=== PATIENT | female | born 1995 | race Caucasian/White ===

== ENCOUNTER 2018-05-22 10:06 | Emergency (ER) | payer OTHER ==
[~2018-05-22] VITALS: Ht 165.1 cm; Wt 68.0 kg
[2018-05-22 10:18] VITALS: BP 114/73
[2018-05-22 10:22] VITALS: BP 114/73
[2018-05-22] MEDS ORDERED: LIDOCAINE 1% ***ER ONLY *** 10 MG/ML VIAL INJ ONE (11:20)
[2018-05-22] MEDS ORDERED: LIDOCAINE MPF 1% - 5 mL VIAL 5 ML ONE (11:24)
== END 2018-05-22 12:09 | disposition home or self-care (01) ==
LOC: MED 10:06
DX: L02.214 Cutaneous abscess of groin (principal); F17.210 Nicotine dependence, cigarettes, uncomplicated
CPT/HCPCS: 10060; 99283; J2001

== ENCOUNTER 2018-09-17 14:29 | Emergency (ER) | payer OTHER ==
[~2018-09-17] VITALS: Ht 165.1 cm; Wt 76.8 kg
[2018-09-17 14:32] VITALS: BP 141/86
[2018-09-17 15:35] LABS: BASOPHILS % (AUTO) 0.4 % (0.0-2.0); EOSINOPHILS # (AUTO) 0.1 K/uL (0-0.4); EOSINOPHILS % (AUTO) 0.9 % (0.0-4.0); HEMATOCRIT 41.7 % (36-48); HEMOGLOBIN 13.4 g/dL (12.0-16.0); LYMPHOCYTES % (AUTO) 11.3 % (20.5-51.1); MEAN CORPUSCULAR HEMOGLOBIN 28 pg (27-31); MEAN CORPUSCULAR HGB CONC 32 g/dL (33-37); MEAN CORPUSCULAR VOLUME 85.6 fL (80-94); MONOCYTES # (AUTO) 0.5 K/uL (0.8-1.0); MONOCYTES % (AUTO) 5.6 % (1.7-9.3); NEUTROPHILS # (AUTO) 7.1 K/uL (1.8-7.7); NEUTROPHILS % (AUTO) 81.8 % (42.2-75.2); PLATELET COUNT (AUTO) 323 K/uL (140-450); RED BLOOD CELL COUNT(AUTO) 4.87 MIL/uL (4.20-5.40); RED CELL DISTRIBUTION WIDTH 13.8 % (11.6-13.7); WHITE BLOOD COUNT (AUTO) 8.7 K/uL (4.8-10.8)
[2018-09-17 15:48] LABS: ANION GAP 10.2 (8-16); CARBON DIOXIDE 29.7 mmol/L (21-32); CREATININE 0.9 mg/dL (0.6-1.3); POTASSIUM 3.9 mmol/L (3.5-5.1)
[2018-09-17 16:02] LABS: ALBUMIN 4.1 g/dL (3.4-5.0); THYROID STIMULATING HORMONE 0.98 uIU/mL (0.34-3.74); TOTAL BILIRUBIN 0.7 mg/dL (0.0-1.0)
[2018-09-17 17:25] VITALS: BP 141/86
== END 2018-09-17 17:23 | disposition home or self-care (01) ==
LOC: MED 14:29
DX: R20.2 Paresthesia of skin (principal); R10.9 Unspecified abdominal pain; I10 Essential (primary) hypertension; F17.200 Nicotine dependence, unspecified, uncomplicated
CPT/HCPCS: 36415; 80053; 81025; 84443; 85025; 99284

== ENCOUNTER 2019-11-10 17:13 | Emergency (ER) | payer OTHER ==
[~2019-11-10] VITALS: Ht 165.1 cm; Wt 81.6 kg
[2019-11-10 17:21] VITALS: BP 127/65
--- NOTE | 2019-11-10 17:30 | NUR ---
PT AMB TO [facility]
[2019-11-10] MEDS ORDERED: ACETAMINOPHEN EXTRA STRENGTH 500 MG TAB PO ONE (17:35)
--- NOTE | 2019-11-10 17:40 | NUR ---
24/F TO ED WITH C/O RT THUMB PAIN S/P DROPPING A BATTERY ON IT X 1 NIGHT AGO. FULL ROM PRESENT. NO OBVIOUS DEFORMITY OR SWELLING NOTED. IN FAST TRACK CHAIR FOR MSE.
[2019-11-10 18:16] VITALS: BP 127/65
== END 2019-11-10 18:16 | disposition home or self-care (01) ==
LOC: MED 17:13
DX: S60.011A Contusion of right thumb without damage to nail, initial encounter (principal); W22.8XXA Striking against or struck by other objects, initial encounter; Y93.89 Activity, other specified; Y92.89 Other specified places as the place of occurrence of the external cause; Y99.8 Other external cause status
CPT/HCPCS: 73130; 99283

== ENCOUNTER 2022-06-23 11:42 | Emergency (ER) | payer OTHER ==
[~2022-06-23] VITALS: Ht 165.1 cm; Wt 83.9 kg
[2022-06-23 12:09] VITALS: BP 111/96
--- NOTE | 2022-06-23 12:12 | NUR ---
PT TO [facility]
[2022-06-23] MEDS ORDERED: IBUP-1842 PO (12:31)
--- NOTE | 2022-06-23 12:34 | NUR ---
SEEN & TREATED BY BEBO MASON.
--- NOTE | 2022-06-23 12:39 | NUR ---
COVID VIK SWAB DONE.
[2022-06-23 12:43] VITALS: BP 114/65
--- NOTE | 2022-06-23 12:43 | NUR ---
Patient discharged with v/s stable. Written and verbal after care instructions given and explained. Patient verbalized understanding. Ambulatory with steady gait. All questions addressed prior to discharge. Advised to follow up with PMD.
== END 2022-06-23 12:43 | disposition home or self-care (01) ==
LOC: MED 11:42
DX: U07.1 COVID-19 (principal); F17.210 Nicotine dependence, cigarettes, uncomplicated
CPT/HCPCS: 99283

== ENCOUNTER 2022-06-29 03:45 | Emergency (ER) | payer OTHER ==
[~2022-06-29] VITALS: Ht 165.1 cm; Wt 81.6 kg
[~2022-06-29 03:45] MED LIST: IBUP-1842 PO
[2022-06-29 04:10] VITALS: BP 119/75
[2022-06-29 04:23] VITALS: BP 119/75
[2022-06-29] MEDS ORDERED: LORazepam 1 MG TAB PO ONE (04:40)
== END 2022-06-29 05:15 | disposition home or self-care (01) ==
LOC: MED 03:45
DX: F41.9 Anxiety disorder, unspecified (principal)
CPT/HCPCS: 99283